=== PATIENT | female | born 1945 | race Caucasian/White ===

== ENCOUNTER 2019-02-10 15:59 | Emergency (ER) | payer MEDICARE, OTHER ==
[~2019-02-10] VITALS: Ht 160 cm; Wt 67.0 kg
[~2019-02-10 15:59] MED LIST: ALPR0.5T6 PO; AMLO-145 PO; ASPI-535 PO; ASPI-817 PO; CILO100T PO; CLOP75TA19 PO; FURO-110 PO; GABA-526 PO; HUM100VI8 SQ; HYDR-3498 PO; IBUP-1542 PO; METO-429 PO; POTA20TA8 PO; RANO500T2 PO; ROSU10TA55 PO; [UNRECOGNIZED DRUG - CODE] PO
[2019-02-10 16:02] VITALS: Ht 160 cm; Wt 67.0 kg
[2019-02-10] MEDS ORDERED: ACETAMINOPHEN 500 MG TAB PO STA (16:16)
[2019-02-10] MEDS ORDERED: SOD CHLORIDE 0.9% 1,000 ML IV STA (16:16)
--- NOTE | 2019-02-10 16:23 | ERD ---
ER Documentation Chief Complaint Chief Complaint C/O CP AND COUGH X 2 DAYS POOR APPETITE HPI During the patient's encounter translation services were utilized Language: [Japanese] Source: [Family] 73-year-old female history of CABG who presents to the emergency room with 24-48 hours of symptoms including dry nonproductive cough, chest wall pain that is dull, worse with coughing and alleviated with not coughing. No exertional symptoms. Patient describes decreased appetite and has not eaten since yesterday evening. Patient feels generally run down. No reported fever. No productive cough. No hemoptysis. She states that the chest pain she is experienced in with a cough is very different from her cardiac chest pain. ROS All systems reviewed and are negative except as per history of present illness. Medications Home Meds Active Scripts Azithromycin* (Zithromax*) 250 Mg Tablet, 250 MG PO .ZPACK DIRECTED, #6 TAB TAKE 500 MG (2 TABS) THE FIRST DAY THEN 250 MG (1 TAB) DAYS 2-5 Prov:JONI MCPHERSON MD 02/10/19 Albuterol Sulfate* (Ventolin HFA*) 18 Gm Hfa.aer.ad, 2 PUFF INHALATION Q4H, #1 INHALER Prov:JONI MCPHERSON MD 02/10/19 Reported Medications Tramadol Hcl* (Ultram*) 50 Mg Tablet, 50 MG PO BID PRN for PAIN, TAB 02/10/19 Celecoxib* (Celebrex*) 200 Mg Capsule, 200 MG PO DAILY, CAP 02/10/19 Isosorbide Mononitrate* (Isosorbide Mononitrate*) 30 Mg Tab.er.24h, 30 MG PO DAILY, TAB 02/10/19 Clopidogrel Bisulfate (Plavix) 75 Mg Tablet, 75 MG PO DAILY 09/08/12 Metoprolol Tartrate* (Lopressor*) 50 Mg Tablet, 50 MG PO BID 08/08/12 Gabapentin* (Gabapentin*) 600 Mg Tablet, 600 MG PO BID 09/13/11 Rosuvastatin Calcium* (Crestor*) 10 Mg Tablet, 10 MG PO HS 09/13/11 Cilostazol* (Cilostazol*) 100 Mg Tablet, 100 MG PO BID 09/13/11 Discontinued Reported Medications Potassium Chloride* (Klor-Con*) 10 Meq Tabsr, 10 MEQ PO DAILY, TAB.SA 8/27/15 Furosemide* (Lasix*) 20 Mg Tablet, 20 MG PO DAILY, TAB 06/26/15 Aspirin Ec (Aspir 81) 81 Mg Tablet.dr, 81 MG PO DAILY 09/08/12 Ranolazine* (Ranexa*) 500 Mg Tabsr, 1000 MG PO BID 08/08/12 Amlodipine Besylate* (Amlodipine Besylate*) 5 Mg Tablet, 5 MG PO DAILY 08/08/12 Alprazolam* (Alprazolam*) 0.5 Mg Tablet, 0.5 MG PO DAILY PRN 09/21/11 Risedronate* (Actonel*) 5 Mg Tablet, 5 MG PO DAILY 09/13/11 Hum Insulin Nph/Reg Insulin Hm (Humulin 70-30 Vial) 100 Units/Ml Vial, 0 SQ 09/13/11 Discontinued Scripts Hydrocodone Bit-Acetaminophen* ([place]*) 5-325 Mg Tab, 1 TAB PO Q4H PRN for PAIN, #18 TAB Prov:BAO BORGES MD 01/29/16 Ibuprofen* (Motrin*) 600 Mg Tab, 600 MG PO Q6, #20 TAB Prov:BAO BORGES MD 01/29/16 Aspirin* (Aspirin* EC) 81 Mg Tablet., 81 MG PO DAILY, #60 TAB Prov:BRAD DOE MD 06/28/15 Allergies Allergies: Coded Allergies: No Known Allergies (Verified Allergy, Unknown, 02/10/19) PMhx/Soc History of Surgery: Yes (LEFT LEG BYPASS, OPEN HEART) Anesthesia Reaction: No Hx Neurological Disorder: No Hx Respiratory Disorders: No Hx Cardiac Disorders: Yes (HTN,high cholesterol, hx open heart) Hx Psychiatric Problems: No Hx Miscellaneous Medical Probl: No Hx Alcohol Use: No Hx Substance Use: No Hx Tobacco Use: No FmHx Family History: No diabetes Physical Exam Vitals Vital Signs Date Temp Pulse Resp B/P (MAP) Pulse Ox O2 O2 Flow FiO2 Time Delivery Rate 02/10/19 82 20 157/71 98 Room Air 19:02 (99) 02/10/19 36.2 16:49 02/10/19 97.2 86 16 201/88 100 Room Air 16:42 (125) 02/10/19 97.2 86 16 238/103 100 16:02 (148) Physical Exam General: Well developed, well nourished, no acute distress Head: Normocephalic, atraumatic. Eyes: Pupils equally reactive, EOM intact ENT: Moist mucous membranes Neck: Supple, no lymphadenopathy Respiratory: Lungs clear bilaterally, no distress Cardiovascular: RRR, no murmurs, rubs, or gallops Abdominal: Soft, non-tender, non-distended, no peritoneal signs : Deferred MSK: No edema, no unilateral swelling, 5/5 strength Neurologic: Alert and oriented, moving all extremities, normal speech, no focal weakness, no cerebellar signs Skin: No rash Psych: Normal mood Result Diagram: 02/10/19 1633 02/10/19 1633 Results 24 hrs Laboratory Tests Test 02/10/19 16:33 02/10/19 18:05 02/10/19 19:31 White Blood Count 4.0 10^3/ul Red Blood Count 4.42 10^6/ul Hemoglobin 11.8 g/dl Hematocrit 37.6 % Mean Corpuscular Volume 85.1 fl Mean Corpuscular Hemoglobin 26.7 pg Mean Corpuscular 31.4 g/dl Hemoglobin Concent Red Cell Distribution Width 13.6 % Platelet Count 69 10^3/UL Mean Platelet Volume 13.1 fl Immature Granulocytes % 0.200 % Neutrophils % 71.4 % Segmented Neutrophils % (Manual) 58 % Band Neutrophils % (Manual) 13 % Lymphocytes % 17.5 % Lymphocytes % (Manual) 17 % Monocytes % 10.2 % Monocytes % (Manual) 9 % Eosinophils % 0.2 % Eosinophils % (Manual) 2 % Basophils % 0.5 % Basophils % (Manual) 1 % Nucleated Red Blood Cells % 0.0 /100WBC Immature Granulocytes # 0.010 10^3/ul Neutrophils # 2.9 10^3/ul Neutrophils # (Manual) 2.3 10^3/ul Band Neutrophils # 0.5 10^3/ul Lymphocytes (Manual) 0.6 10^3/ul Lymphocytes # 0.7 10^3/ul Monocytes # 0.4 10^3/ul Monocytes # (Manual) 0.3 10^3/ul Eosinophils # 0.0 10^3/ul Basophils # 0.0 10^3/ul Basophils # (Manual) 0.0 10^3/ul Nucleated Red Blood Cells # 0.0 10^3/ul Platelet Estimate DECREASED Polychromasia 3+ Poikilocytosis 1+ Anisocytosis 1+ Microcytosis 1+ Sodium Level 140 mmol/L Potassium Level 4.4 mmol/L Chloride Level 103 mmol/L Carbon Dioxide Level 26 mmol/L Anion Gap 11 Blood Urea Nitrogen 18 mg/dl Creatinine 0.76 mg/dl Est Glomerular Filtrat mL/min Rate mL/min Glucose Level 44 mg/dl Calcium Level 9.3 mg/dl Troponin I 0.012 ng/ml < 0.012 ng/ml Bedside Glucose 232 mg/dL Current Medications Medications Dose Sig/Ana Lilia Start Time Status Last (Trade) Ordered Route PRN Stop Time Admin Dose Reason Admin Sodium 1,000 ml @ Q1H STAT 02/10/19 DC 02/10/19 Chloride 1,000 mls/hr IV 16:16 17:29 02/10/19 17:15 1,000 mg ONCE STAT 02/10/19 DC 02/10/19 Acetaminophen PO 16:16 16:49 (Tylenol 02/10/19 16:17 Tab) Dextrose 50 ml ONCE STAT 02/10/19 DC 02/10/19 (D50w IV 16:59 17:29 Syringe) 02/10/19 17:00 Procedures/MDM EKG, MONITORS, & DIAGNOSTIC IMAGING: EKG: I reviewed and interpreted a 12-lead EKG. Rhythm: Normal sinus rhythm ST Changes: No contiguous ST segment elevations T waves: No contiguous T wave inversions Impression: No evidence of acute cardiac ischemia Repeat EKG: I reviewed and interpreted a 12-lead EKG. Rhythm: Normal sinus rhythm ST Changes: No contiguous ST segment elevations T waves: No contiguous T wave inversions Impression: No evidence of acute cardiac ischemia Chest x-ray: IMPRESSION: 1. Low lung volumes with compressive changes. 2. Aortic atherosclerosis. LAB INTERPRETATION: I reviewed the laboratory testing and it shows no evidence of acute process MEDICAL DECISION MAKING: Patient presents with cough congestion and chest wall pain related to the cough. The patient gives a clear description of the chest pain and states this is very different than her cardiac chest pain. This seems very reproducible and likely consistent with acute bronchitis versus community acquired pneumonia. Chest x-ray would be reasonable. However, given the patient's cardiac history I do believe EKG and troponin would be appropriate in this setting. ER COURSE: * Because had a very low pretest probability for the patient's chest pain being related to cardiac etiology and troponin x2 which is negative. * Patient's symptoms are improved. The patient's hypoglycemia was likely in the setting of using insulin with decreased p.o. intake. The patient was given dextrose and a complex carbohydrate meal. Glucose normalized. * The patient is resting comfortably and at this point I believe safe for discharge with primary care follow-up. Given the patient's age and comorbidities empiric azithromycin will be reasonable though lower clinical concern for pneumonia. CONSULTATION: None DISPOSITION PLAN: The patient does not have an identifiable emergent medical condition that warrants inpatient hospitalization at this time. The patient is deemed safe for discharge with outpatient follow-up. We discussed follow up with the patient's primary care doctor within 24 to 48 hours as needed. We also discussed return to the emergency room for worsening symptoms or worsening condition. Outpatient referral: None required Discharge Medications: Albuterol, azithromycin Departure Diagnosis: Primary Impression: Chest wall pain Additional Impressions: Acute bronchitis Bronchitis organism: unspecified organism Qualified Codes: J20.9 - Acute bronchitis, unspecified Hypoglycemia Condition: Stable JONI MCPHERSON MD Feb 10, 2019 16:23
[2019-02-10] MEDS ORDERED: DEXTROSE 50% 50 ML SYRINGE IV STA (16:59)
[2019-02-10] MEDS ORDERED: ISOS30TA67 PO (17:15)
[2019-02-10] MEDS ORDERED: CELE200C PO (17:16)
[2019-02-10] MEDS ORDERED: TRAM50TA PO (17:17)
[2019-02-10] MEDS ORDERED: AZIT250T PO (20:18)
[2019-02-10] MEDS ORDERED: ALBU18HF INHALATION (20:18)
[2019-02-10 20:36] VITALS: BP 154/72; PULSE 78; RESP 20
== END 2019-02-10 20:38 | disposition home or self-care (01) ==
LOC: E/R 15:59
DX: J20.9 Acute bronchitis, unspecified (principal); E16.2 Hypoglycemia, unspecified; Z95.1 Presence of aortocoronary bypass graft
CPT/HCPCS: 36415; 71045; 80048; 82962; 84484; 85025; 93005; 96374; 99285; J7030